=== PATIENT | female | born 1955 | race Caucasian/White ===

== ENCOUNTER 2020-06-05 16:40 | Emergency (ER) | payer OTHER ==
[2020-06-05 19:35] LABS: HEMOGLOBIN 16.4 gm/dl (12.3-15.3); RED BLOOD COUNT 5.27 M/UL (4.00-5.10); WHITE BLOOD COUNT 9.8 K/UL (4.5-11.0)
[2020-06-05] MEDS ORDERED: NORVASC10 MG PO (22:13)
== END 2020-06-05 22:30 | disposition home or self-care (01) ==
LOC: ER1 16:40
PROVIDERS: Emergency Medicine
DX: E11.51 Type 2 diabetes mellitus with diabetic peripheral angiopathy without gangrene (principal); I10 Essential (primary) hypertension; E11.40 Type 2 diabetes mellitus with diabetic neuropathy, unspecified; F17.210 Nicotine dependence, cigarettes, uncomplicated
CPT/HCPCS: 80053; 82550; 82553; 83605; 83735; 83874; 85025; 85610; 85730; 96374; 99283